=== PATIENT | male | born 1995 | race Caucasian/White ===

== ENCOUNTER 2023-02-16 22:15 | Emergency (ER) | payer SELFPAY ==
[~2023-02-16] VITALS: Ht 182.8 cm; Wt 63.5 kg
== END 2023-02-16 22:57 | disposition home or self-care (01) ==
LOC: ED 22:15
DX: S62.336A Displaced fracture of neck of fifth metacarpal bone, right hand, initial encounter for closed fracture (principal); Z87.891 Personal history of nicotine dependence; W22.8XXA Striking against or struck by other objects, initial encounter; Y93.89 Activity, other specified; Y92.89 Other specified places as the place of occurrence of the external cause; Y99.8 Other external cause status